=== PATIENT | male | born 1940 | race Caucasian/White ===

== ENCOUNTER → 2016-06-10 | Outpatient (CLI) | payer OTHER | LOC: PCVCIMAG 15:00 | PROVIDERS: ATTEND Nuclear Medicine Nuclear Cardiology | DX: I82.220 Acute embolism and thrombosis of inferior vena cava (principal); I87.1 Compression of vein; I73.9 Peripheral vascular disease, unspecified; I25.10 Atherosclerotic heart disease of native coronary artery without angina pectoris; I77.9 Disorder of arteries and arterioles, unspecified; E78.00 Pure hypercholesterolemia, unspecified; I10 Essential (primary) hypertension; I87.2 Venous insufficiency (chronic) (peripheral); R68.89 Other general symptoms and signs; R23.2 Flushing | CPT/HCPCS: 93970; 93976; G0463 ==

== ENCOUNTER → 2016-06-12 | Outpatient (CLI) | payer OTHER | LOC: PCVCIMAG 13:36 | PROVIDERS: ATTEND Internal Medicine Cardiovascular Disease | DX: E78.00 Pure hypercholesterolemia, unspecified (principal); I73.9 Peripheral vascular disease, unspecified; I77.9 Disorder of arteries and arterioles, unspecified; I82.220 Acute embolism and thrombosis of inferior vena cava; I87.2 Venous insufficiency (chronic) (peripheral); I10 Essential (primary) hypertension; I25.10 Atherosclerotic heart disease of native coronary artery without angina pectoris; R60.0 Localized edema | CPT/HCPCS: 80061; 93005; 93306; G0463 ==

== ENCOUNTER → 2016-07-10 | Outpatient (CLI) | payer OTHER | END | disposition home or self-care (01) | LOC: PCVCCLINIC 10:42 | PROVIDERS: ATTEND Internal Medicine Cardiovascular Disease | DX: I25.10 Atherosclerotic heart disease of native coronary artery without angina pectoris (principal); I73.9 Peripheral vascular disease, unspecified; I87.1 Compression of vein; I82.220 Acute embolism and thrombosis of inferior vena cava; I77.9 Disorder of arteries and arterioles, unspecified; I87.2 Venous insufficiency (chronic) (peripheral); I10 Essential (primary) hypertension; E78.00 Pure hypercholesterolemia, unspecified; I95.1 Orthostatic hypotension; I50.9 Heart failure, unspecified | CPT/HCPCS: 93005; G0463 ==